=== PATIENT | male | born 1990 | race American Indian/Alaskan Native ===

== ENCOUNTER 2018-01-03 10:06 | Emergency (ER) | payer OTHER ==
[2018-01-03 10:29] VITALS: BP 136/79
[2018-01-03] MEDS ORDERED: BENADRYL IM ONE (11:07)
[2018-01-03] MEDS ORDERED: SOLU-Medrol IM ONE (11:07)
--- NOTE | 2018-01-03 11:07 | Emergency Department Report ---
ED Rash HPI - HPI Chief Complaint: Skin Rash Stated Complaint: OAK POISION Time Seen by Provider: 01/03/18 11:05 Location: Upper Extremities Suspected Cause: Plant Rash Symptoms: Yes Itching (severe itching and per patient), Yes Blistering, Yes Fever, No Facial Swelling, No Choking Sensation, No Wheezing/Dyspnea, No Peeling, No Lightheaded, No Malaise, No Myalgias Severity: moderate Other History: This is a 27-year-old male patient reports that he has been having red itchy bumps to his arms and forearms over the last 2 days. He said he was exposed to poison issac. Denies any pain. He reports some slightly blister and is put and calamine lotion on the area but it stopped itching but has not taken a bump with. Denies any coughing, wheezing, stridor, fever, chills, tongue or lip swelling. Denies any drooling or difficulty breathing. ED Review of Systems ROS: Stated complaint: OAK POISION Other details as noted in HPI Comment: All other systems reviewed and negative Constitutional: denies: chills, fever ENT: denies: throat pain, congestion Respiratory: denies: cough, orthopnea, shortness of breath, SOB with exertion, SOB at rest, stridor, wheezing Cardiovascular: denies: chest pain, palpitations, dyspnea on exertion, orthopnea , edema, syncope, paroxysmal nocturnal dyspnea Gastrointestinal: denies: abdominal pain, nausea, vomiting Musculoskeletal: denies: back pain, joint swelling, arthralgia, myalgia Skin: rash, pruritus. denies: change in color, change in hair/nails, other Neurological: denies: headache ED Past Medical Hx - Past Medical History Previous Medical History?: No - Surgical History Past Surgical History?: No - Family History Family history: no significant - Social History Smoking Status: Never Smoker Substance Use Type: None - Medications Home Medications: Home Medications Medication Instructions Recorded Confirmed Last Taken Type Prednisone [predniSONE 10 mg 10 mg PO .TAPER #1 tab.ds.pk 01/03/18 Unknown Rx (6-Day Pack, 21 Tabs)] hydrOXYzine HCL [Atarax] 25 mg PO Q6HR PRN #16 tablet 01/03/18 Unknown Rx Rash Exam - Exam General: Vital signs noted. No distress. Alert and acting appropriately. 27-year-old male well-nourished well-developed in no acute distress. HEENT: No Periorbital Edema, No Conjuctival Injection, No Chemosis, No Perioral Edema, No Tongue Edema, No Uvular Edema, No Compromised Airway, No Drooling Lungs: Yes Good Air Exchange, No Wheezes, No Ronchi, No Stridor, No Cough, No Labored Respirations, No Retractions, No Use of Accessory Muscles, No Other Abnormal Lung Sounds Skin: Yes Urticarial Rash (patient with urticarial type rash to her upper extremities and some areas single. Nontender to palpate. One area of blister.) , Yes Erythema, Yes Other (rashes are circular), No Maculopapular Rash, No Morbilliform rash, No Bulla(e), No Excoriations, No Weeping, No Tenderness, No Edema, No Encrustations Other: Positive: Abdomen Normal ( with mild swelling.), Neurologic Normal, Musculoskeletal Normal ED Course Vital Signs 01/03/18 10:26 Temperature 98.3 F Pulse Rate 83 Respiratory 16 Rate Blood Pressure 136/79 O2 Sat by Pulse 97 Oximetry - Reevaluation(s) Reevaluation #1: 01/03/18 12:43 She given Solu-Medrol 125 mg IM and Benadryl 50 mg IM and emergency room with positive relief and clearing of rash and also resolution of infection. ED Medical Decision Making - Medical Decision Making 27-year-old male presents to the emergency room with itching and red rash to his upper extremity reporting that he was exposed to poison oak while outdoors 2 days ago. He reports that he has been putting calamine lotion which helps with itching but not taken away or rash. No oropharyngeal or respiratory involvement. Patient was examined by myself and found to have urticarial type rash to his upper extremities. He has no respiratory symptoms. I discussed the patient is diagnosis and treatment plan and medication given. He was given Solu-Medrol and Benadryl which relieved symptoms. Will be discharged home with steroids and Atarax. A/P Pruritus-patient given Benadryl 50 mg I am emergency room and will be sent home on Atarax. Itching relieved Contact dermatitis-probably from exposure to poison oak--Solu-Medrol 125 mg I am an emergency room and will be sent home and prednisone Dosepak-rash subsided and Patient discharged home in stable condition, vital signs are stable he is afebrile. He said that his itching is better and he feels better. 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 I discussed with him if he does not have either if any will need to follow-up at [facility]. Critical care attestation.: If time is entered above; I have spent that time in minutes in the direct care of this critically ill patient, excluding procedure time. ED Disposition Clinical Impression: Pruritus Contact dermatitis Qualifiers: Contact dermatitis type: allergic Contact dermatitis trigger: non-food plants Qualified Code(s): L23.7 - Allergic contact dermatitis due to plants, except food Disposition: DC-01 TO HOME OR SELFCARE Is pt being admited?: No Does the pt Need Aspirin: No Condition: Stable Instructions: Contact Dermatitis (ED), Itchy Skin (ED), Acute Rash (ED) Additional Instructions: Please keep affected area clean and dry Avoid from getting in contact with poison issac or poison [place] Take medication as prescribed Anorexic and caused drowsiness of present drive or operate heavy machinery while taking this medication If symptoms return or worsen and she developed difficulty breathing, swallowing , swelling of the tongue, neck or lip, please return to emergency room [facility] Prescriptions: hydrOXYzine HCL [Atarax] 25 mg PO Q6HR PRN #16 tablet PRN Reason: Itching Prednisone [predniSONE 10 mg (6-Day Pack, 21 Tabs)] 10 mg PO .TAPER #1 tab.ds.pk Referrals: PRIMARY CARE, [Primary Care Provider] - 2-3 Days ERENDIRA KEEN MD [Staff Physician] - 2-3 Days [facility] [Outside] - 2-3 Days Forms: Work/School Release Form(ED), Accompanied Note
== END 2018-01-03 13:02 | disposition home or self-care (01) ==
LOC: ED 10:06
DX: L23.7 Allergic contact dermatitis due to plants, except food (principal)
CPT/HCPCS: 96372; 99282; J1200; J2930

== ENCOUNTER 2021-11-02 18:48 | Emergency (ER) | payer SELFPAY ==
[2021-11-02 19:20] VITALS: BP 137/82
== END 2021-11-03 02:00 | disposition left against medical advice (07) ==
LOC: ED 18:48
DX: T78.40XA Allergy, unspecified, initial encounter (principal); Z53.21 Procedure and treatment not carried out due to patient leaving prior to being seen by health care provider; X58.XXXA Exposure to other specified factors, initial encounter